=== PATIENT | male | born 1970 | race Caucasian/White ===

== ENCOUNTER → 2023-12-21 06:42 | Outpatient (REF) | payer OTHER, SELFPAY | LOC: HWRAD 06:42 | PROVIDERS: ATTENDING PHYSICIAN Family Medicine | DX: R22.9 Localized swelling, mass and lump, unspecified (principal) | CPT/HCPCS: 76705 ==

== ENCOUNTER → 2024-07-02 08:38 | Outpatient (REF) | payer OTHER, SELFPAY | LOC: HWRAD 08:38 | PROVIDERS: ATTENDING PHYSICIAN Specialist; FAMILY PHYSICIAN Family Medicine | DX: R31.0 Gross hematuria (principal) | CPT/HCPCS: 76770 ==